=== PATIENT | male | born 1950 | race Two or more races ===

== ENCOUNTER 2017-09-13 11:43 | Outpatient (CLI) | payer OTHER | END 2017-09-13 11:50 | disposition home or self-care (01) | LOC: LAB 11:43 | DX: I10 Essential (primary) hypertension (principal); M54.5 Low back pain; E78.9 Disorder of lipoprotein metabolism, unspecified; E03.8 Other specified hypothyroidism; E66.8 Other obesity; C61 Malignant neoplasm of prostate ==

== ENCOUNTER 2019-06-26 07:39 | Outpatient (CLI) | payer OTHER ==
[~2019-06-26] VITALS: Ht 180.3 cm; Wt 81.6 kg
== END 2019-06-26 08:45 | disposition home or self-care (01) ==
LOC: OFIC 805 07:39
DX: J31.0 Chronic rhinitis (principal); H91.8X3 Other specified hearing loss, bilateral

== ENCOUNTER 2019-09-18 09:26 | Outpatient (CLI) | payer OTHER | END 2019-09-18 15:00 | disposition home or self-care (01) | LOC: LAB 09:26 | DX: I10 Essential (primary) hypertension (principal); E11.9 Type 2 diabetes mellitus without complications; E03.8 Other specified hypothyroidism; E78.2 Mixed hyperlipidemia; N40.0 Benign prostatic hyperplasia without lower urinary tract symptoms ==

== ENCOUNTER 2019-09-18 13:36 | Outpatient (CLI) | payer OTHER | END 2019-09-18 13:47 | disposition home or self-care (01) | LOC: RAD 13:36 | DX: R10.9 Unspecified abdominal pain (principal); M12.9 Arthropathy, unspecified; M46.47 Discitis, unspecified, lumbosacral region ==